=== PATIENT | male | born 1975 | race Caucasian/White ===

== ENCOUNTER → 2024-02-04 06:15 | Day surgery (SDC) | payer BC, SELFPAY | LOC: GI 06:15 | PROVIDERS: ATTENDING PHYSICIAN Internal Medicine Gastroenterology | DX: Z12.11 Encounter for screening for malignant neoplasm of colon (principal); D12.5 Benign neoplasm of sigmoid colon; K64.8 Other hemorrhoids; K57.30 Diverticulosis of large intestine without perforation or abscess without bleeding; Z83.719 Family history of colon polyps, unspecified | CPT/HCPCS: 45385; 88305 ==

== ENCOUNTER → 2024-09-10 14:03 | Outpatient (REF) | payer BC, SELFPAY | LOC: HWRAD 14:03 | PROVIDERS: ATTENDING PHYSICIAN Family Medicine | DX: M54.50 Low back pain, unspecified (principal); M25.552 Pain in left hip; Z15.89 Genetic susceptibility to other disease | CPT/HCPCS: 72052; 72072; 72110; 73502 ==

== ENCOUNTER 2024-12-02 06:39 | Day surgery (SDC) | payer BC, SELFPAY ==
[2024-12-02 08:45] VITALS: BP 120/86; BMI 23.8
[2024-12-02 08:56] VITALS: BMI 23.8
[2024-12-02] MEDS: TYLENOL 1000 MG PO (09:03)
[2024-12-02] MEDS: NORMOSOL-R/PLASMALYTE-A 1000 IV (09:04)
[2024-12-02 11:19] VITALS: BP 120/86; BP 126/83
[2024-12-02 11:30] VITALS: BP 121/82
[2024-12-02 11:45] VITALS: BP 125/85
[2024-12-02 12:00] VITALS: BP 122/85
[2024-12-02 12:15] VITALS: BP 127/81
[2024-12-02] MEDS: ROXICODONE 5 MG PO (12:39)
== END 2024-12-02 12:52 | disposition home or self-care (01) ==
LOC: SDS 06:39
PROVIDERS: ATTENDING PHYSICIAN Surgery
DX: E80.4 Gilbert syndrome (principal)
CPT/HCPCS: 49650; C1781